=== PATIENT | female | born 1960 | race Caucasian/White ===

== ENCOUNTER 2016-11-17 12:37 | Inpatient (IN) | payer OTHER ==
[~2016-11-17 12:37] MED LIST: ASPIRIN81 M1 PO; BENADRYL25 MG; BP PILL; CATAFLAM50 MG PO; CELEXA20 M2 PO; CELEXA40 M1 PO; CELEXA40 M2 PO; CHANTIX0.5 MG; COLACE100 M1 PO; COMPAZINE10 MG PO; CYANOCOBAL1000 MCG/3 IM; CYCLOBENZAPRINE10 M1 PO; DILAUDID2 MG PO; EFFEXOR XR150 MG/TAB PO; EFFEXOR XR75 M1 PO; EFFEXOR XR75 MG; EFFEXOR25 MG; FLOMAX0.4 M1 PO; IRON325 M3 PO; LIPITOR40 M1 PO; NEURONTIN300 M1 PO; NICOTINE PATCH1 EAC2 TP; NORCO 5-325 TA1 EACH PO; NORCO 5/325 TAB1 TAB PO; OMEPRAZOLE40 M2 PO; PERCOCET 5-3251 EACH PO; PERCOCET 5/3251 TAB PO; SOMA PO; SOMA350 MG PO; TENORMIN25 M1 PO; TRAZODONE HCL100 MG PO; TRAZODONE HCL150 M1 PO; TRAZODONE50 MG PO; ULTRAM50 M1 PO; VICODIN 5/500 T1 TAB PO; VITAMIN D31000 UNI3 PO; ZOCOR80 M1 PO; [UNRECOGNIZED DRUG - REMARK]
[2016-11-17 13:06] LABS: CARBON DIOXIDE-VENOUS 28 mmol/L (21-33); CREATININE 0.97 mg/dl (0.67-1.17); GLUCOSE 88 mg/dl (65-120); POTASSIUM 4.6 mmol/L (3.5-5.3); SODIUM 135 mmol/L (135-146); eGFR VALUE FOR BLACK 75 mL/Min
[2016-11-17] MEDS ORDERED: ULTRAM50 M1 PO (13:10)
[2016-11-17 13:11] LABS: INR 0.8 INR (0.9-1.1); PROTHROMBIN TIME 9.7 SECONDS (9.0-13.6)
[2016-11-17 13:25] LABS: ALBUMIN 3.7 g/dl (3.5-5.0); ALKALINE PHOSPHATASE 83 U/L (33-138); ALT/SGPT 51 U/L (12-78); AST/SGOT 45 U/L (10-40); BILIRUBIN,TOTAL 0.2 mg/dl (0-1.5); BLOOD UREA NITROGEN 14 mg/dl (6-24); CALCIUM 8.5 mg/dl (8.5-10.5); CHLORIDE 105 mmol/l (96-110)
[2016-11-17 13:27] LABS: ESR-ERYTHROCYTE SED RATE 30 mm/hr (0-30)
[2016-11-17 13:29] LABS: BASO % 1.2 % (0-2); BASO ABSOLUTE COUNT 0.1 tho/cmm (0.0-0.2); EOS % 1.1 % (0-7); EOSINOPHIL ABSOLUTE COUNT 0.1 tho/cmm (0.0-0.7); HCT-HEMATOCRIT 28.9 % (34.0-49.0); HGB-HEMOGLOBIN 9.2 gm/dl (12.0-15.5); IMMATURE GRANULOCYTES ABSOLUTE 0.02 tho/cmm (0-0.03); IMMATURE GRANULOCYTES PERCENT 0.3 % (0-0.3); LYMPH % 21.5 % (20-45); LYMPH ABSOLUTE COUNT 1.4 tho/cmm (0.8-4.5); MCH (MEAN CORPUSCULAR HGB) 23.4 pg (28.0-32.0); MCHC MEAN CORPUSCULAR HGB CONC 31.8 % (32.0-36.0); MCV (MEAN CELL VOLUME) 73.4 fl (82.0-96.0); MONO % 5.5 % (0-12); MONOCYTE ABSOLUTE COUNT 0.4 tho/cmm (0.0-1.2); NEUTROPHIL ABSOLUTE COUNT 4.5 tho/cmm (1.6-8.0); NEUTROPHIL-AUTOMATED 4.5 tho/cmm (1.6-8.0); NEUTROPHILS % 70.4 % (40-80); PLATELET COUNT 292 tho/cmm (150-450); RED BLOOD COUNT 3.94 mil/cmm (4.00-5.20); RED CELL DISTRIBUTION WIDTH 20.1 % (12.4-16.4); WHITE BLOOD COUNT 6.4 tho/cmm (4.0-10.0)
[2016-11-17 13:37] LABS: ANION GAP 7 mmol/L (0-20)
[2016-11-18] MEDS ORDERED: PROTONIX40 M2 PO (10:33)
[2016-11-18] MEDS ORDERED: PLAVIX75 M1 PO (10:33)
[2017-02-26] MEDS ORDERED: DICLOFENAC SODI50 M1 PO (12:04)
[2017-02-26] MEDS ORDERED: ASPIRIN-DIPYRI1 EACH PO (12:07)
[2017-02-26] MEDS ORDERED: LEVETIRACETAM250 M1 PO (12:08)
[2017-02-26] MEDS ORDERED: BYSTOLIC5 M1 PO (12:08)
[2017-02-26] MEDS ORDERED: IRON325 M3 PO (12:10)
[2017-02-26] MEDS ORDERED: TRIAMCINOLONE A15 G2 TP (12:11)
[2017-02-26] MEDS ORDERED: MAGNESIUM500 MG PO (12:11)
[2017-02-26] MEDS ORDERED: MULTIVITAMINS1 EAC6 PO (12:18)
[2017-02-27] MEDS ORDERED: TOPAMAX25 M2 PO (16:13)
[2017-02-27] MEDS ORDERED: [UNRECOGNIZED DRUG - REMARK] (16:13)
[2017-02-27] MEDS ORDERED: [UNRECOGNIZED DRUG - REMARK] (16:14)
[2017-02-27] MEDS ORDERED: ASPIRIN325 M3 PO (16:22)
== END 2016-11-18 11:20 | DRG 69 ==
LOC: EDMED 12:37 → EMR2 16:12 → 5EB 18:00
PROVIDERS: Emergency Medicine; ADMIT Hospitalist
DX: G45.9 Transient cerebral ischemic attack, unspecified (principal); G45.3 Amaurosis fugax; I16.0 Hypertensive urgency; D50.9 Iron deficiency anemia, unspecified; E78.5 Hyperlipidemia, unspecified; R20.0 Anesthesia of skin; G43.909 Migraine, unspecified, not intractable, without status migrainosus
CPT/HCPCS: G8987-GO-CH; G8988-GO-CH; G8989-GO-CH; J1650; J1885; J7030

== ENCOUNTER 2016-12-05 14:35 | Emergency (ER) | payer OTHER ==
[~2016-12-05 14:35] MED LIST changes: +PLAVIX75 M1 PO; +PROTONIX40 M2 PO
[2016-12-05] MEDS ORDERED: PROMETHAZINE HC25 M3 PO (14:54)
[2016-12-05 15:02] LABS: CARBON DIOXIDE-VENOUS 27 mmol/L (21-33); CREATININE 1.22 mg/dl (0.67-1.17); GLUCOSE 71 mg/dl (65-120); POTASSIUM 4.2 mmol/L (3.5-5.3); SODIUM 138 mmol/L (135-146); eGFR VALUE FOR BLACK 57 mL/Min
[2016-12-05 15:06] LABS: BASO % 1.8 % (0-2); BASO ABSOLUTE COUNT 0.1 tho/cmm (0.0-0.2); EOS % 2.5 % (0-7); EOSINOPHIL ABSOLUTE COUNT 0.1 tho/cmm (0.0-0.7); HCT-HEMATOCRIT 27.6 % (34.0-49.0); HGB-HEMOGLOBIN 8.7 gm/dl (12.0-15.5); IMMATURE GRANULOCYTES ABSOLUTE 0.01 tho/cmm (0-0.03); IMMATURE GRANULOCYTES PERCENT 0.2 % (0-0.3); LYMPH % 27.8 % (20-45); LYMPH ABSOLUTE COUNT 1.4 tho/cmm (0.8-4.5); MCHC MEAN CORPUSCULAR HGB CONC 31.5 % (32.0-36.0); MCV (MEAN CELL VOLUME) 72.8 fl (82.0-96.0); MEAN PLATELET VOLUME 10.5 cmc (9.4-12.4); MONO % 8.2 % (0-12); MONOCYTE ABSOLUTE COUNT 0.4 tho/cmm (0.0-1.2); NEUTROPHILS % 59.5 % (40-80); PLATELET COUNT 291 tho/cmm (150-450); RED BLOOD COUNT 3.79 mil/cmm (4.00-5.20); RED CELL DISTRIBUTION WIDTH 20.1 % (12.4-16.4); WHITE BLOOD COUNT 5.1 tho/cmm (4.0-10.0)
[2016-12-05 15:07] LABS: INR 0.9 INR (0.9-1.1)
[2016-12-05 15:23] LABS: ALBUMIN 3.6 g/dl (3.5-5.0); ALKALINE PHOSPHATASE 80 U/L (33-138); ALT/SGPT 44 U/L (12-78); BILIRUBIN,TOTAL 0.3 mg/dl (0-1.5); BLOOD UREA NITROGEN 13 mg/dl (6-24); CALCIUM 8.5 mg/dl (8.5-10.5); CHLORIDE 107 mmol/l (96-110)
[2016-12-05 15:28] LABS: ESR-ERYTHROCYTE SED RATE 30 mm/hr (0-30)
[2016-12-05 15:34] LABS: ANION GAP 8 mmol/L (0-20)
[2016-12-05 15:35] LABS: AST/SGOT 44 U/L (10-40)
[2017-02-26] MEDS ORDERED: DICLOFENAC SODI50 M1 PO (12:04)
[2017-02-26] MEDS ORDERED: ASPIRIN-DIPYRI1 EACH PO (12:07)
[2017-02-26] MEDS ORDERED: LEVETIRACETAM250 M1 PO (12:08)
[2017-02-26] MEDS ORDERED: BYSTOLIC5 M1 PO (12:08)
[2017-02-26] MEDS ORDERED: IRON325 M3 PO (12:10)
[2017-02-26] MEDS ORDERED: MAGNESIUM500 MG PO (12:11)
[2017-02-26] MEDS ORDERED: TRIAMCINOLONE A15 G2 TP (12:11)
[2017-02-26] MEDS ORDERED: MULTIVITAMINS1 EAC6 PO (12:18)
[2017-02-27] MEDS ORDERED: TOPAMAX25 M2 PO (16:13)
[2017-02-27] MEDS ORDERED: [UNRECOGNIZED DRUG - REMARK] (16:13)
[2017-02-27] MEDS ORDERED: [UNRECOGNIZED DRUG - REMARK] (16:14)
[2017-02-27] MEDS ORDERED: ASPIRIN325 M3 PO (16:22)
== END 2016-12-05 16:49 ==
LOC: EDMED 14:35
PROVIDERS: Emergency Medicine
DX: I63.9 Cerebral infarction, unspecified (principal); I10 Essential (primary) hypertension; E78.5 Hyperlipidemia, unspecified; F32.9 Major depressive disorder, single episode, unspecified; Z90.49 Acquired absence of other specified parts of digestive tract; Z90.710 Acquired absence of both cervix and uterus; Z79.82 Long term (current) use of aspirin; Z79.899 Other long term (current) drug therapy